=== PATIENT | female | born 1990 | race Caucasian/White ===

== ENCOUNTER 2017-06-22 17:01 | Observation (INO) ==
[2017-06-22 18:22] LABS: Basophils % 0.3 % (0.0-0.8); Hematocrit 39.2 VOL% (35.7-47.0); Hemoglobin 13.4 GM/DL (12.0-16.0); Immature Granulocytes % 0.5 %; Immature Granulocytes Absolute 0.04 #; Lymphocytes # 0.8 10*3/uL (1.4-4.0); Lymphocytes % 8.5 % (21.3-54.2); Mean Corpuscular HGB Conc 34.2 GM/DL (32-36); Mean Corpuscular Hemoglobin 30 PG (27-34); Mean Corpuscular Volume 87.1 FL (87-102); Mean Platelet Volume 10.4 FL (9.6-12.0); Monocytes # 0.8 10*3/uL (0.11-0.8); Monocytes % 8.6 % (1.7-12.7); Neutrophils # 7.2 10*3/uL (1.4-7.4); Neutrophils % 82.1 % (38.7-73.9); Platelet Count 300 T/CUMM (130-400); Red Cell Distribution Width 12.4 % (9.3-17.3); White Blood Count 8.8 T/CUMM (4-12)
[2017-06-22] MEDS ORDERED: SODIUM CHLORIDE 0.9% 1,000 ML IV STA (18:37)
[2017-06-22] MEDS ORDERED: DILTIAZEM 50 MG/10 ML VIAL IV STA (18:37)
[2017-06-22 18:42] LABS: Apearance,Urine CLEAR (Clear); Bacteria,Urine Occasional /HPF (Few); Bilirubin,Urine Negative (Negative); Blood, Urine Negative (Negative); Glucose,Urine (UA) Negative (Negative); Ketones,Urine 5 mg/dL (Negative); Mucus,Urine Occasional /LPF (Occasional); Nitrite,Urine Negative (Negative); Protein,Urine Negative; RBC,Urine <1 /HPF (0-4); Squamous Epithelial Cell,Urine Occasional /HPF (0-10); Urine Color Yellow (Yellow); Urine Specific Gravity 1.008 (1.001-1.035); Urine Urobilinogen < 2.0 EU/DL (0.2-1.0); WBC,Urine <1 /HPF (0-6)
[2017-06-22 18:54] LABS: Albumin 4.3 G/DL (3.4-5.0); Bilirubin,Total 0.6 MG/DL (0.2-1.0); Calcium 9.1 MG/DL (8.5-10.1); Osmolality,Calculated 270.8 MOS/KG (273-304); Potassium 3.6 MMOL/L (3.5-5.1); Total Protein 8.5 G/DL (6.4-8.3)
[2017-06-22 19:01] LABS: Barbiturates Screen,Urine Negative (Negative); Benzodiazepines Screen,Urine Negative (Negative); Cannabinoid Screen,Urine Negative (Negative); Opiate Screen,Urine Negative (Negative); Phencyclidine Screen,Urine Negative (Negative)
[2017-06-22] MEDS ORDERED: ONDANSETRON 4 MG/2 ML VIAL ONE (19:23)
[2017-06-22] MEDS ORDERED: ONDANSETRON 4 MG/2 ML VIAL IV STA (19:44)
[2017-06-22] MEDS ORDERED: SODIUM CHLORIDE 0.9% 1,000 ML IV ONE (20:13)
[2017-06-22] MEDS ORDERED: ACETAMINOPHEN 500 MG TABLET ONE (21:40)
[2017-06-22] MEDS ORDERED: ACETAMINOPHEN 500 MG TABLET PO STA (22:23)
[2017-06-23] MEDS ORDERED: ONDANSETRON 4 MG/2 ML VIAL IV PRN (02:47)
[2017-06-23] MEDS ORDERED: ACETAMINOPHEN 325 MG TABLET PO PRN (02:47)
[2017-06-23] MEDS: SODIUM CHLORIDE 0.9% 1,000 ML IV SCH ×3 (03:45→19:31)
[2017-06-23] MEDS: cefTRIAXone 1,000 MG in SYRINGE 1 EACH IV SCH ×2 (03:45→16:05)
[2017-06-23 05:14] LABS: Risk Ratio 3.89; VLDL CHOLESTEROL 16.8 MG/DL
[2017-06-23] MEDS: ENOXAPARIN 40 MG/0.4 ML SYRINGE SUBCUT SCH (08:19)
[2017-06-23] MEDS: DOCUSATE SODIUM 100 MG CAPSULE PO SCH ×2 (08:20→21:46)
[2017-06-23] MEDS: PANTOPRAZOLE 40 MG TABLET PO SCH (09:24)
[2017-06-23] MEDS: PROPRANOLOL 10 MG TABLET PO SCH ×2 (12:04→21:45)
[2017-06-23] MEDS: AMOXICILLIN/CLAV 875 MG TABLET PO SCH (17:29)
[2017-06-24] MEDS: SODIUM CHLORIDE 0.9% 1,000 ML IV SCH (03:31)
[2017-06-24] MEDS: AMOXICILLIN/CLAV 875 MG TABLET PO SCH (04:25)
[2017-06-24 05:48] LABS: Calcium 7.7 MG/DL (8.5-10.1); Osmolality,Calculated 278.1 MOS/KG (273-304); Potassium 3.7 MMOL/L (3.5-5.1)
[2017-06-24] MEDS: PANTOPRAZOLE 40 MG TABLET PO SCH (09:55)
[2017-06-24] MEDS: PROPRANOLOL 10 MG TABLET PO SCH (09:55)
[2017-06-24] MEDS: DOCUSATE SODIUM 100 MG CAPSULE PO SCH (10:02)
[2017-06-24] MEDS: ENOXAPARIN 40 MG/0.4 ML SYRINGE SUBCUT SCH (10:03)
[2017-06-24 11:44] VITALS: BP 106/63
== END 2017-06-24 12:00 | disposition home or self-care (01) ==
LOC: N.EDINP 17:01 → N.ED 17:01 → SUATTDRO 23:44 → N.TELES 06-23 01:17 → N.2E 06-23 01:17 → N.TELES 06-23 02:18
PROVIDERS: ADMIT Internal Medicine; ATTEND Internal Medicine